=== PATIENT | male | born 1955 | race Caucasian/White ===

== ENCOUNTER 2016-08-07 10:29 | Day surgery (SDC) | payer OTHER ==
[2016-08-07] VITALS (16 sets, daily range): BP systolic 95–137; BP diastolic 56–79; PULSE 60–76; RESP 12–34; Ht 175.3 cm; Wt 92.5 kg
[~2016-08-07] VITALS: Ht 175.3 cm; Wt 92.5 kg
[~2016-08-07 10:29] MED LIST: CEFAZOLIN 2 GM/50 ML (PMX) 50 ML IVPB SCH; SOD CHLORIDE 0.9% 1,000 ML IV SCH
[2016-08-07] MEDS ORDERED: LIDOCAINE 2% (SDV) 5 ML INJ ONE (15:00)
[2016-08-07] MEDS ORDERED: MIDAZOLAM 1 MG/ML 2 ML INJ ONE (15:00)
[2016-08-07] MEDS ORDERED: SUCCINYLCHOLINE CHLORIDE 100 MG/5 ML SYG IV ONE (15:00)
[2016-08-07] MEDS ORDERED: PROPOFOL 20 ML ONE (15:00)
[2016-08-07] MEDS ORDERED: FENTAnyl 50 MCG/ML VIAL ONE (15:00)
[2016-08-07] MEDS ORDERED: ROCURONIUM 50 MG INJ ONE (15:00)
[2016-08-07] MEDS ORDERED: CEFAZOLIN 1 GM INJ ONE (15:07)
[2016-08-07] MEDS ORDERED: FAMOTIDINE 20 MG INJ ONE (15:16)
[2016-08-07] MEDS ORDERED: DEXAMETHASONE 4 MG/ML 1 ML INJ ONE (15:16)
[2016-08-07] MEDS ORDERED: ONDANSETRON 4 MG INJ ONE (15:16)
[2016-08-07] MEDS ORDERED: OXYCODONE/ACETAMINOPHEN (5/325) TAB PO PRN (15:30)
[2016-08-07] MEDS ORDERED: DIPHENHYDRAMINE 50 MG INJ IV PRN (15:30)
[2016-08-07] MEDS ORDERED: HYDROmorphONE (0.2 MG/ML) 10ML SYG IV PRN ×2 (15:30)
[2016-08-07] MEDS ORDERED: MEPERIDINE 25 MG INJ IV PRN (15:30)
[2016-08-07] MEDS ORDERED: ONDANSETRON 4 MG INJ IV PRN ×2 (15:30→16:00)
[2016-08-07] MEDS ORDERED: FENTAnyl 50 MCG/ML VIAL IV PRN (15:30)
[2016-08-07] MEDS ORDERED: PROCHLORPERAZINE 10 MG INJ IV PRN (15:30)
[2016-08-07] MEDS ORDERED: GLYCOPYRROLATE 0.4 MG INJ ONE (15:33)
[2016-08-07] MEDS ORDERED: NEOSTIGMINE 3 MG/3 ML SYRINGE ONE (15:33)
[2016-08-07] MEDS ORDERED: BUPIVACAINE 0.25% (MPF) 30 ML INJ INJ ONE (15:41)
[2016-08-07] MEDS ORDERED: KETOROLAC 30 MG INJ IV PRN (16:00)
[2016-08-07] MEDS ORDERED: HYDROCODONE/APAP (5/325) TAB PO PRN ×2 (16:00)
[2016-08-07] MEDS ORDERED: morphine 2 MG INJ IV PRN (16:00)
--- NOTE | 2016-08-07 16:01 | HPN ---
Date/Time of Note Date/Time of Note DATE: 08/07/16 TIME: 16:01 Interval H&P Admission Note Pt. seen H&P reviewed: No system changes ANA ZARAGOZA MD Aug 07, 2016 16:01
[2016-08-07] MEDS: HYDROmorphONE (0.2 MG/ML) 10ML SYG IV PRN ×3 (16:20→16:38)
--- NOTE | 2016-08-07 17:39 | OPR ---
DATE OF OPERATION: 08/07/2016 PREOPERATIVE DIAGNOSIS: Ventral/umbilical hernia without obstruction or gangrene. POSTOPERATIVE DIAGNOSIS: Ventral/umbilical hernia without obstruction or gangrene. OPERATION PERFORMED: Repair of ventral/umbilical hernia with mesh. SURGEON: Dov Joya MD CHANGE MANAGER: None. ANESTHESIA: General endotracheal. ANESTHESIOLOGIST: Dr. Kearns FLUIDS: Crystalloid. ESTIMATED BLOOD LOSS: Minimal. SPECIMEN: None. INDICATIONS FOR SURGERY: The patient is a 60-year-old gentleman who presented to the office complai cristino of a painful bulge around the area of the belly button. This had been present for several year s but had been causing increasing pain and discomfort. He was diagnosed on physical exam as having a ventral/umbilical hernia incarcerated chronically with fat. He was therefore scheduled for electi ve repair of his hernia to prevent further sequelae of hernia disease which include but are not limi keenan to incarceration and strangulation. All risks and benefits of the procedure including but not l imited to wound infection, excessive bleeding, postoperative seroma/hematoma formation, hernia recur rence, chronic pain, etc. were all explained to the patient in full detail. He fully understood and wished to proceed with the procedure. Informed consent was therefore obtained. The patient was brought to the operating room and placed supine on the operating table. Bilateral s equential compression devices were placed on both lower extremities, and a dose of broad spectrum pe rioperative intravenous antibiotics was given. After the induction of smooth general endotracheal a nesthesia, the patient's abdomen was prepped and draped in standard surgical fashion. A semicircula r incision was made inferior to the umbilicus using a 15 blade scalpel after anesthetizing the skin with 0.25% Marcaine with epinephrine. Incision was carried down through the skin and subcutaneous t issues using a combination of Bovie electrocautery and blunt dissection. There was some scar tissue encountered in the subcutaneous tissues. This was incised using the Bovie electrocautery. Dissect ion was taken down to the anterior rectus fascia. The umbilicus was then encircled using a Pean cla mp and transected at its base. Fat-containing hernia was then identified. The contents were reduce d and the sac dissected off the umbilicus. The fascia was cleaned circumferentially. The defect me asured approximately 1.5 cm. A small piece of Ethicon Proceed ventral hernia patch was used to repa ir and reinforce the hernia defect. It was secured to the fascia by its tails using interrupted 2-0 Novafil suture. The fascia was then reapproximated over the mesh using #1 PDS suture in figure-of- eight fashion. The mesh was soaked in antibiotic irrigation prior to inserting it into the field. With the repair complete, subcutaneous tissues were irrigated with more antibiotic-containing irriga tion. The umbilicus was then tacked back down to the fascia using an interrupted 3-0 Vicryl suture. Further local anesthesia was applied into the fascia and around the skin of the incision site, and the skin was reapproximated in layers using interrupted 3-0 Vicryl sutures for the dermal layer. T he skin was reapproximated using a running subcuticular 4-0 Monocryl suture. The incision was clean ed, and Dermabond was applied as well as an abdominal binder. The patient was then awoken from [facility] and transported to the recovery room in stable condition. All counts were correct at the end of case x2. Dictated By: DOV CAMPOVERDE/IKE Conf#: [id number] DID#: [id number]
[2016-08-07] MEDS ORDERED: IBUPROFEN 600 MG TAB PO PRN (22:00)
== END 2016-08-07 18:25 | disposition home or self-care (01) ==
LOC: SDS 10:29
PROVIDERS: ATTEND Surgery
DX: K42.9 Umbilical hernia without obstruction or gangrene (principal); E66.9 Obesity, unspecified; Z68.30 Body mass index [BMI] 30.0-30.9, adult
CPT/HCPCS: 49585; C1781; J0330; J0690; J1100; J1170; J1885; J2250; J2405; J2710; J3010